=== PATIENT | female | born 1970 | race Caucasian/White ===

== ENCOUNTER 2017-01-25 18:43 | Inpatient (IN) | payer OTHER ==
[~2017-01-25] VITALS: Ht 167.6 cm; Wt 63.5 kg
[2017-01-25] MEDS ORDERED: DICYCLOMINE HCL 20 MG TABLET PO PRN (19:45)
[2017-01-25] MEDS ORDERED: LOPERAMIDE HCL 2 MG CAPSULE PO PRN ×2 (19:45)
[2017-01-25] MEDS ORDERED: MIRALAX 17 GM POWD.PACK PO PRN (19:45)
[2017-01-25] MEDS ORDERED: LORAZEPAM 1 MG TABLET PO PRN ×2 (19:45)
[2017-01-25] MEDS ORDERED: ACETAMINOPHEN 325 MG TABLET PO PRN (19:45)
[2017-01-25] MEDS ORDERED: ONDANSETRON ODT 4 MG TAB.RAPDIS SL PRN (19:45)
[2017-01-25] MEDS ORDERED: diphenhydrAMINE 50 MG CAPSULE PO PRN (19:45)
[2017-01-25] MEDS ORDERED: ONDANSETRON 4 MG/2 ML VIAL IM PRN (19:45)
[2017-01-25] MEDS ORDERED: CLONIDINE HCL 0.1 MG TABLET PO PRN (19:45)
[2017-01-25] MEDS ORDERED: LORAZEPAM 2 MG/1 ML VIAL IM PRN (19:45)
[2017-01-25] MEDS ORDERED: MAG HYDROX/AL HYDROX/SIMETH 30 ML LIQUID UDC PO PRN (19:45)
[2017-01-25 20:00] VITALS: BP 105/69
--- NOTE | 2017-01-25 20:00 | NUR ---
Admission Note: Pt admitted to [facility] at 1950. Pt is a 46 year old female, AOx4 without s/s of acute distress noted. BP: 105/69 HR: 82 T: 97.8 RR: 18 SpO2 100%. Weight 140lbs. Height 5'6". Pt noted with allergy to Vicodin. Pt reports current ETOH use and dependence: Pt first drank ETOH while she was 18 years old. Pt drinks 750ml of vodka daily for the past 6 days. Pt last drank vodka prior to admission. Pt stated she relapsed 6 days ago and was sober for 5 months prior. Pt reports hx of Anxiety and Depression. Pt denies any suicidal/homicidal ideation at this time. Pt states she takes Wellbutrin and Rixulti prescribed by her psychiatrist. Medications reconciled. Respirations even and unlabored. Bowel sounds active x4 quadrants. Pt seen by Dr. Yu with admission orders. Initial CIWA assessment was 8. Pt reported mild withdrawal symptoms including slight tremor and anxiety/agitation. Pt has been to a detox facility 6 years ago but is unable to recall the name. Pt states she has a primary care physician in [place]: Dr. Ellington. Educated pt about current plan of care and verbalized support for pt. Encouraged pt to verbalize feelings. Bed in lowest position. Side rails up x2. Bed padded for safety.. All needs attended and met. Call light functioning and within reach. Will continue to monitor.
[2017-01-25 20:11] LABS: BASOPHILS # (AUTO) 0.1 K/uL (0.0-8.0); BASOPHILS % (AUTO) 0.9 % (0.0-2.0); EOSINOPHILS # (AUTO) 0.2 K/uL (0.0-0.7); EOSINOPHILS % (AUTO) 1.8 % (0.0-7.0); HEMATOCRIT 37.6 % (31.2-41.9); HEMOGLOBIN 12.9 g/dL (10.9-14.3); LYMPHOCYTES # (AUTO) 3.7 K/uL (20.0-40.0); LYMPHOCYTES % (AUTO) 41.9 % (20.5-51.5); MEAN CORPUSCULAR HEMOGLOBIN 32.5 uug (24.7-32.8); MEAN CORPUSCULAR HGB CONC 34 g/dL (32.3-35.6); MEAN CORPUSCULAR VOLUME 94.5 fL (75.5-95.3); MONOCYTES # (AUTO) 0.5 K/uL (2.0-10.0); MONOCYTES % (AUTO) 5.5 % (0.0-11.0); NEUTROPHILS # (AUTO) 4.4 K/uL (1.8-8.9); NEUTROPHILS % (AUTO) 49.9 % (38.5-71.5); PLATELET COUNT (AUTO) 305 K/uL (179-408); RED BLOOD CELL COUNT(AUTO) 3.98 MIL/uL (3.63-4.92); WHITE BLOOD COUNT (AUTO) 8.8 K/uL (3.8-11.8)
[2017-01-25 20:12] LABS: *URINE HCG, QUAL NEGATIVE (NEGATIVE)
[2017-01-25 20:14] LABS: BILIRUBIN,TOTAL 0.2 mg/dL (0.2-1.0); CREATININE 0.8 mg/dL (0.6-1.3); MAGNESIUM 1.8 mg/dL (1.8-2.4); POTASSIUM 3.7 mmol/L (3.5-5.1); TOTAL PROTEIN, SERUM 7.6 g/dL (6.4-8.2)
[2017-01-25 20:28] LABS: *AMPHETAMINE, URINE NEGATIVE (NEGATIVE); *BARBITURATE, URINE NEGATIVE (NEGATIVE); *CANNABINOID, URINE NEGATIVE (NEGATIVE); *COCCAINE, URINE NEGATIVE (NEGATIVE); *OPIATE, URINE NEGATIVE (NEGATIVE); *PHENCYCLIDINE SCREEN,URINE NEGATIVE (NEGATIVE)
[2017-01-25] MEDS ORDERED: THIAMINE HCL 200 MG/2 ML VIAL IM ONE (20:35)
[2017-01-25] MEDS ORDERED: LORAZEPAM 1 MG TABLET PO SCH (21:00)
[2017-01-26] VITALS: BP 104/58
[2017-01-26 04:00] VITALS: BP 107/66
[2017-01-26] MEDS ORDERED: BUPR-96 PO (06:15)
[2017-01-26] MEDS ORDERED: [UNRECOGNIZED DRUG - OTHER] PO (06:15)
--- NOTE | 2017-01-26 07:04 | NUR ---
End of Shift Notes: Pt is 46F, admitted for ETOH Withdrawal on 01/26/17. Pt is AOx4 without s/s of acute distress. Pt is full code, on regular diet, and on fall/seizure precautions. Pt noted with allergy to Vicodin. Pt reports hx of Anxiety and Depression. Pt is currently on 5-day Ativan taper. Pt is compliant with plan of care. Pt slept for 9 hours. Respirations even and unlabored. Last CIWA score was 3 at 0400 No N/V noted during the shift. Fall and Sz precautions observed. Bed in lowest position. Side rails up x2. Call light functioning and within reach. All needs attended and met. Will endorse to day shift nurse.
--- NOTE | 2017-01-26 07:13 | NUR ---
Start of Shift Notes: Received patient in her room. Awake, alert and oriented x 4. Verbally responsive. Able to make needs known. Respirations even and unlabored. No SOB noted. Skin warm and dry to touch. Abdomen soft and non-distended with (+) BS in all 4 quadrants. No complains of N/V/D or constipation noted. Bladder non-distended. Voids independently. Ambulatory ad jacqueline with steady gait. Patient is a 46 year old male admitted for ETOH dependence who was placed on a 5-day Ativan taper as ordered. No adverse reactions noted. Has past medical hx of anxiety, depression. Allergic to Vicodin. FULL CODE. Regular diet. On fall and seizure precautions. Educated patient on her current plan of care for the day and her medication regimen. Encouraged oral fluid intake and encouraged group participation to learn new skills to prevent relapse.
[2017-01-26 08:00] VITALS: BP 124/83
--- NOTE | 2017-01-26 08:34 | NUR ---
Zofran 4 mg SL given: Patient noted with complains of feeling nauseous. No emesis noted. Medicated patient with Zofran 4 mg SL as ordered. Will monitor for effectiveness.
[2017-01-26] MEDS: FOLIC ACID 1 MG TABLET PO SCH (08:35)
[2017-01-26] MEDS: MULTIVITAMINS,THERAPEUTIC TABLET PO SCH (08:35)
[2017-01-26] MEDS: LORAZEPAM 1 MG TABLET PO SCH ×3 (08:35→20:13)
[2017-01-26] MEDS: THIAMINE HCL 100 MG TABLET PO SCH (08:35)
[2017-01-26] MEDS ORDERED: TUBERCULIN,PURIF.PROT.DERIV. 5 TU/0.1 ML TEST ID ONE (09:00)
--- NOTE | 2017-01-26 09:34 | NUR ---
Re-assessment: Per patient, PRN Zofran has been effective in relieving nausea.
[2017-01-26 12:00] VITALS: BP 100/56
[2017-01-26 16:00] VITALS: BP 107/71
[2017-01-26] MEDS: buPROPion XL 150 MG TAB.SR.24H PO SCH (16:37)
--- NOTE | 2017-01-26 19:01 | NUR ---
End of Shift Notes: Patient initiated her 5-day Ativan taper as ordered. No adverse reactions noted. Patient is tolerating taper well. VS monitored closely. No significant abnormalities noted. Withdrawal symptoms were closely monitored. Initial CIWA 14, patient presented with nausea, tremors, fatigue, anxiety, agitation mild itching and pins and needles sensation. Last CIWA 5. Medicated patient with Zofran 4 mg SL as ordered at 0834 for nausea with help after 1 hour. Per patient, Ativan has been effective in reducing her withdrawal symptoms. Denies S/I or H/I noted. Denies AV hallucinations. Compliant with care and treatment. TB test given to patient's left forearm. Encouraged to attend group and activities. All needs met and attended. Will contine to monitor closely.
--- NOTE | 2017-01-26 19:15 | NUR ---
Start of Shift Note: Patient is a 46 y/o female admitted on 01/25/17 for ETOH dependence. Patient reported drinking Vodka 750ml daily for 6 days. Patient has PMHX of Anxiety & Depression. Patient is on a regular diet with allergies to Vicodin. Full Code status noted. Seizure and Fall precaution noted. Patient is on a 5-day Ativan taper and tolerating well. Last CIWA is 5. Pt received PRN Zofran during day shift. Patient is alert & oriented x4. Patient is ambulatory with a steady gait. No shortness of breath noted. Respiration even & unlabored. Abdomen soft & non-distended. No nausea/vomiting noted. Patient complains of 5/10 headache and mild anxiety. Hand tremors felt but not seen. Pt denies any hallucinations. Safety precautions are in place. Bed locked in lowest position. Both side rails up. Call light within pt's reach. Will continue to monitor patient.
[2017-01-26 20:00] VITALS: BP 105/66
[2017-01-26] MEDS: IBUPROFEN 400 MG TABLET PO PRN (20:13)
--- NOTE | 2017-01-26 20:13 | NUR ---
PRN Motrin Patient complains of moderate headache. Patient appears anxious and restless in bed. PRN Motrin PO administered as ordered. Will monitor for effectiveness of medication.
--- NOTE | 2017-01-26 21:13 | NUR ---
PRN Reassessment PRN medication effective. Pt verbalized relief from headache. Pt in bed and appears comfortable. No facial grimacing noted. Will continue to monitor patient.
[2017-01-27] VITALS: BP 98/60
[2017-01-27 04:00] VITALS: BP 98/55
--- NOTE | 2017-01-27 07:10 | NUR ---
End of Shift Note: Patient had an uneventful night. Patient continues on her Ativan taper and tolerating well. Last Ciwa is 4. Pt reported that taper medication is effective in controlling her withdrawal symptoms. Pt received PRN Motrin for headache and was effective. Patient remained stable and vitals WNL. Pt remained compliant with medications and treatment. Pt still asleep at this time with no s/s of distress noted. Patient slept for a total of 9 hours. Fluid intake: 2550ml, Voided 2x with 1x bowel movement. All needs attended & met. Safety measures in place. Will continue to monitor patient.
[2017-01-27 08:00] VITALS: BP 106/55
[2017-01-27] MEDS: FOLIC ACID 1 MG TABLET PO SCH (08:51)
[2017-01-27] MEDS: LORAZEPAM 1 MG TABLET PO SCH ×3 (08:51→20:14)
[2017-01-27] MEDS: THIAMINE HCL 100 MG TABLET PO SCH (08:51)
[2017-01-27] MEDS: buPROPion XL 150 MG TAB.SR.24H PO SCH (08:51)
[2017-01-27] MEDS: ARIPIPRAZOLE 2 MG TABLET PO SCH (08:51)
[2017-01-27] MEDS: MULTIVITAMINS,THERAPEUTIC TABLET PO SCH (08:51)
[2017-01-27 10:07] LABS: HEPATITIS B SURFACE AG Negative (Negative)
[2017-01-27 12:00] VITALS: BP 107/64
--- NOTE | 2017-01-27 12:31 | NUR ---
Therapist prompted client to attend group, client agreed to attend
--- NOTE | 2017-01-27 15:59 | NUR ---
Ativan at 1500 not administered: Patient refused 1500 dose of Ativan 1 mg. Per patient, she does not feel that she needs it at this time. CIWA 5. Educated patient on the seizure risk and benefits of taking the medication but patient still refused. Will continue to monitor and encourage the patient to take the medications.
[2017-01-27 16:00] VITALS: BP 127/83
--- NOTE | 2017-01-27 19:01 | NUR ---
End of Shift Notes: Patient continues to be on a 3-day Ativan taper as ordered. No adverse reactions noted. Patient is tolerating taper well. VS monitored closely. No significant banormalities noted. Withdrawal symptoms were closely monitored. Initial CIWA 7, patient presented with anxiety, mild agitation, fatigue, sweats and tremors. Last CIWA 4. Per patient, Ativan has been effective in reducing her withdrawal symptoms. Refused Ativan 1 mg PO at 1500 despite explanation of risk and benefits. Attempted to attend group and acitivities as tolerated. Denies any S/I, H/I or AV hallucinations noted. All needs met and attended. Will continue to monitor closely.
--- NOTE | 2017-01-27 19:15 | NUR ---
Start of Shift Note: Patient is a 46 y/o female admitted on 01/25/17 for ETOH dependence. Patient reported drinking Vodka 750ml daily for 6 days. Patient has PMHX of Anxiety & Depression. Patient is on a regular diet with allergies to Vicodin. Full Code status noted. Seizure and Fall precaution noted. Patient is on a 5-day Ativan taper and tolerating well. Last CIWA is 4. No PRN medications given during day shift. Patient is alert & oriented x4. Patient is ambulatory with a steady gait. No shortness of breath noted. Respiration even & unlabored. Abdomen soft & non-distended. No nausea/vomiting noted. Patient complains of mild headache and mild anxiety. No hand tremors noted. Pt denies any hallucinations. Safety precautions are in place. Bed locked in lowest position. Both side rails up. Call light within pt's reach. Will continue to monitor patient.
[2017-01-27 20:00] VITALS: BP 96/61
[2017-01-27] MEDS: IBUPROFEN 400 MG TABLET PO PRN (20:14)
--- NOTE | 2017-01-27 20:14 | NUR ---
PRN Motrin Patient complains of moderate headache. Patient appears anxious and restless in bed. PRN Motrin PO administered as ordered. Will monitor for effectiveness of medication.
--- NOTE | 2017-01-27 20:14 | NUR ---
PRN Reassessment PRN medication effective. Pt verbalized relief from headache. Patient in bed and appears comfortable. NO s/s of pain/discomfort noted. Will continue to monitor patient.
[2017-01-28] VITALS: BP 92/56
[2017-01-28 04:00] VITALS: BP 103/68
--- NOTE | 2017-01-28 07:21 | NUR ---
End of Shift Note: Patient is a 46 y/o female admitted on 01/25/17 for ETOH dependence. Patient had an uneventful night. Patient continues on her Ativan taper and tolerating well. Last Ciwa is 4. Pt reported that taper medication is effective in controlling her withdrawal symptoms. Pt received PRN Motrin for headache and was effective. Patient remained stable and vitals WNL. Pt remained compliant with medications and treatment. Pt still asleep at this time with no s/s of distress noted. Patient slept for a total of 10 hours. Fluid intake: 100 ml. Will continue to encourage pt to increase fluid intake. Voided 1x with 0x bowel movement. All needs attended & met. Safety measures in place. Will continue to monitor patient.
--- NOTE | 2017-01-28 07:22 | NUR ---
Start of Shift Notes: Received patient in her room. Awake, alert and oriented x 4. Verbally responsive. Able to make needs known. Respirations even and unlabored. No SOB noted. Skin warm and dry to touch. Abdomen soft and non-distended with (+) BS in all 4 quadrants. No complains of N/V/D or constipation noted. Bladder non-distended. Voids independently. Ambulatory ad jacqueline with steady gait. Patient is a 46 year old male admitted for ETOH dependence who was placed on a modified 3-day Ativan taper as ordered. No adverse reactions noted. Has past medical hx of anxiety, depression. Allergic to Vicodin. FULL CODE. Regular diet. On fall and seizure precautions. Educated patient on her current plan of care for the day and her medication regimen. Encouraged oral fluid intake and encouraged group participation to learn new skills to prevent relapse.
[2017-01-28 08:00] VITALS: BP 131/78
[2017-01-28] MEDS: ARIPIPRAZOLE 2 MG TABLET PO SCH (08:25)
[2017-01-28] MEDS: MULTIVITAMINS,THERAPEUTIC TABLET PO SCH (08:25)
[2017-01-28] MEDS: buPROPion XL 150 MG TAB.SR.24H PO SCH (08:25)
[2017-01-28] MEDS: THIAMINE HCL 100 MG TABLET PO SCH (08:25)
[2017-01-28] MEDS: FOLIC ACID 1 MG TABLET PO SCH (08:25)
[2017-01-28] MEDS ORDERED: LORAZEPAM 1 MG TABLET PO SCH ×2 (09:00)
[2017-01-28 12:00] VITALS: BP 106/74
--- NOTE | 2017-01-28 12:18 | NUR ---
Therapist prompted client to come to group today and share with others. Client agreed.
[2017-01-28 16:00] VITALS: BP 119/68
--- NOTE | 2017-01-28 19:04 | NUR ---
End of Shift Notes: Patient completed her modified 3-day Ativan taper as ordered. No adverse reactions noted. Patient is tolerating taper well. VS monitored closely. No significant banormalities noted. Withdrawal symptoms were closely monitored. Initial CIWA 4, patient presented with anxiety, mild agitation, fatigue, tremors. Last CIWA 2. Per patient, Ativan has been effective in reducing her withdrawal symptoms.. Attempted to attend group and acitivities as tolerated. Denies any S/I, H/I or AV hallucinations noted. All needs met and attended. Will continue to monitor closely.
--- NOTE | 2017-01-28 19:15 | NUR ---
Start of Shift Note: Patient is a 46 y/o female admitted on 01/25/17 for ETOH dependence. Patient has PMHX of Anxiety & Depression. Patient is on a regular diet with allergies to Vicodin. Full Code status noted. Seizure and Fall precaution noted. Patient completed her Ativan taper and is scheduled to be discharge tomorrow. Last CIWA is 2 @ 1600. No PRN medications given during day shift. Patient is alert & oriented x4. Patient is ambulatory with a steady gait. No shortness of breath noted. Respiration even & unlabored. Abdomen soft & non-distended. No nausea/vomiting noted. Patient denies any pain/discomfort. Slight anxiety noted. No hand tremors noted. Pt denies any hallucinations. Safety precautions are in place. Bed locked in lowest position. Both side rails up. Call light within pt's reach. Will continue to monitor patient.
[2017-01-28 20:00] VITALS: BP 106/62
[2017-01-29] MEDS ORDERED: ARIP2TAB3 PO (01:52)
--- NOTE | 2017-01-29 07:18 | NUR ---
End of Shift Note: Patient is a 46 y/o female admitted on 01/25/17 for ETOH dependence. Patient had an uneventful night. Patient completed her Ativan taper and she is scheduled to be discharge today. Pt is self motivated for sobriety. Last Ciwa is 1. No PRN medications given during my shift. Patient remained stable and vitals WNL. Pt remained compliant with medications and treatment. Pt still asleep at this time with no s/s of distress noted. Patient slept for a total of 9 hours. Fluid intake: 951 ml. Will continue to encourage pt to increase fluid intake. Voided 2x with no bowel movement. All needs attended & met. Safety measures in place. Will continue to monitor patient.
--- NOTE | 2017-01-29 07:43 | NUR ---
BEGINNING OF SHIFT Patient endorsement report received from nightman nurse, all pertinent information discussed. Patient is a 46 year old female, with admitting Dx: ETOH dependence. Patient currently Under close observation, currently with with ongoing 5 day Ativan taper as ordered, well tolerated, no ASE noted, patient received no Prn medications during shift. Patient with last ciwa score of: 1; patient slept for 9 hours. Patient received awake, alert and oriented x4, educated regarding plan of care for the day and medication regimen. safety measures in place. fall and seizure precautions observed. will continue to monitor closely.
[2017-01-29 08:32] VITALS: BP 111/73
[2017-01-29] MEDS: THIAMINE HCL 100 MG TABLET PO SCH (08:33)
[2017-01-29] MEDS: buPROPion XL 150 MG TAB.SR.24H PO SCH (08:33)
[2017-01-29] MEDS: FOLIC ACID 1 MG TABLET PO SCH (08:33)
[2017-01-29] MEDS: MULTIVITAMINS,THERAPEUTIC TABLET PO SCH (08:33)
[2017-01-29] MEDS: ARIPIPRAZOLE 2 MG TABLET PO SCH (08:33)
[2017-01-29] MEDS ORDERED: LORAZEPAM 1 MG TABLET PO SCH (09:00)
--- NOTE | 2017-01-29 09:00 | NUR ---
DISCHARGE Patient discharged off the unit at 0858. Prior to discharge patient was provided with education and teaching regarding all discharge instructions with good verbal understanding. patient noted self motivated towards sobriety. Patient being discharged to home. Patients vital signs WNL. Patient with no s/sx of withdrwal. last ciwa score of: 0. Patients dischare instructions and prescritions were placed in patients personal duffel bag. Patient not in any apparent acute distress. Off the uniat at 0858
== END 2017-01-29 08:58 | disposition home or self-care (01) | DRG 895 ==
LOC: SRC 18:43
PROVIDERS: ADMIT Internal Medicine; ATTEND Internal Medicine
PROC: HZ2ZZZZ Detoxification Services for Substance Abuse Treatment (ICD-10-PCS; principal; 2017-01-25)
PROC: HZ41ZZZ Group Counseling for Substance Abuse Treatment, Behavioral (ICD-10-PCS; 2017-01-27)
DX: F10.230 Alcohol dependence with withdrawal, uncomplicated (principal); F33.2 Major depressive disorder, recurrent severe without psychotic features; E86.0 Dehydration; F41.9 Anxiety disorder, unspecified; Y90.7 Blood alcohol level of 200-239 mg/100 ml; Z81.8 Family history of other mental and behavioral disorders; Z79.899 Other long term (current) drug therapy; Z80.42 Family history of malignant neoplasm of prostate; F32.9 Major depressive disorder, single episode, unspecified
CPT/HCPCS: 36415; 70030-TC; 80307; 83735; 84703; 85025; 86580; 86592; 86705; 86803; 87340; 87806; A4663; G0480; J3411; Q0162